=== PATIENT | male | born 1950 | race Two or more races ===

== ENCOUNTER 2019-07-25 17:51 | Emergency (ER) | payer MEDICARE, OTHER | END 2019-07-25 21:47 | disposition home or self-care (01) | LOC: E/R 17:51 | DX: R51 Headache (principal); I10 Essential (primary) hypertension; I25.10 Atherosclerotic heart disease of native coronary artery without angina pectoris; E11.9 Type 2 diabetes mellitus without complications | CPT/HCPCS: 70450; 99284-25 ==